=== PATIENT | male | born 1955 | race Caucasian/White ===

== ENCOUNTER → 2023-03-04 09:39 | Outpatient (BNVA) | payer OTHER, SELFPAY | PROVIDERS: Visit Provider Dermatology | DX: C44.311 Basal cell carcinoma of skin of nose (principal) | CPT/HCPCS: 17311; 17312; 99213 ==

== ENCOUNTER → 2023-03-13 14:54 | Outpatient (BNVA) | payer OTHER, SELFPAY | PROVIDERS: Visit Provider Dermatology | DX: Z48.817 Encounter for surgical aftercare following surgery on the skin and subcutaneous tissue (principal); Z85.828 Personal history of other malignant neoplasm of skin; Z72.0 Tobacco use | CPT/HCPCS: 99213 ==

== ENCOUNTER → 2023-04-02 14:23 | Outpatient (BNVA) | payer OTHER, SELFPAY | PROVIDERS: Visit Provider Dermatology | DX: L82.1 Other seborrheic keratosis (principal); L57.8 Other skin changes due to chronic exposure to nonionizing radiation; Z48.817 Encounter for surgical aftercare following surgery on the skin and subcutaneous tissue; Z85.828 Personal history of other malignant neoplasm of skin; Z72.0 Tobacco use | CPT/HCPCS: 99213 ==

== ENCOUNTER → 2023-09-30 14:45 | Outpatient (BNVA) | payer OTHER, SELFPAY | PROVIDERS: Visit Provider Nurse Practitioner Family | DX: L82.1 Other seborrheic keratosis (principal); L57.8 Other skin changes due to chronic exposure to nonionizing radiation; D18.01 Hemangioma of skin and subcutaneous tissue; Z08 Encounter for follow-up examination after completed treatment for malignant neoplasm; Z85.828 Personal history of other malignant neoplasm of skin | CPT/HCPCS: 99213 ==